=== PATIENT | male | born 1965 ===

== ENCOUNTER 2019-09-16 19:04 | Inpatient (IN) | payer MEDICAID ==
[~2019-09-16] VITALS: Ht 188 cm; Wt 112.8 kg
[2019-09-16] VITALS (129 sets, daily range): BP systolic 117–138; BP diastolic 65–97; PULSE 72–92; TEMP 97.3–97.8; O2SAT 90–99
--- NOTE | 2019-09-16 19:10 | NUR ---
PT ARRIVES PER AMBULATORY STATUS. IS ALERT AND ORIENTED X4. HAS SL TO LEFT HAND WITHOUT REDNESS OR SWELLING. S.O. AT BEDSIDE.
--- NOTE | 2019-09-16 19:25 | NUR ---
PT UNDERSTANDS PROCEDURE AND SIGNS CONSENT FOR SURGERY.
--- NOTE | 2019-09-16 19:35 | NUR ---
DR STODDARD NOTIFIED OF PTS ARRIVAL.
[2019-09-16] MEDS ORDERED: FLOMAX 0.40.4 MG/CAP PO (19:41)
[2019-09-16] MEDS ORDERED: ZOLOFT 50MG50 MG PO (19:41)
[2019-09-16] MEDS ORDERED: LIPITOR 40MG TA40 MG PO (19:42)
[2019-09-16] MEDS ORDERED: ZOFRAN 4MG T4 MG/TAB PO (19:42)
[2019-09-16] MEDS ORDERED: RT SPIRIVA18 MCG IH (19:43)
[2019-09-16] MEDS ORDERED: ASPIRIN E.C. 8181 MG PO (19:44)
--- NOTE | 2019-09-16 20:02 | NUR ---
Surgery staff here.
[2019-09-16 21:29] LABS: BASO # 0.1 (0.0-0.2); BASO % 0.6 % (0.0-2.0); EOS # 0.2 (0.0-0.7); GRAN # 4.9 (1.4-6.5); HEMATOCRIT 43.2 % (42.0-52.0); HEMOGLOBIN 14.5 g/dl (13.5-18.0); LYMPH # 2.3 (1.2-3.4); LYMPH % 28.4 % (20.0-51.0); MEAN CELL VOLUME 91 fl (80.0-100.0); MEAN CORPUSCULAR HEMOGLOBIN 31 pg (27.0-31.0); MEAN CORPUSCULAR HGB CONC 34 g/dl (33.0-37.0); MEAN PLATELET VOLUME 10.6 fl (7.4-10.4); MONO # 0.7 (0.1-0.6); MONO % 8.9 % (1.7-9.3); PLATELET COUNT 181 K/mm3 (130-400); RED BLOOD COUNT 4.74 M/mm3 (4.20-5.60); REDCELL DISTRIBUTION WIDTH-CV 12.4 % (11.5-14.5)
[2019-09-16 21:43] LABS: ALBUMIN 4.2 gm/dL (3.5-5.0); BILIRUBIN,TOTAL 0.7 mg/dL (0.0-1.0); CALCIUM 8.8 mg/dL (8.4-10.2); CREATININE, serum 1.42 (0.66-1.25); MAGNESIUM 2.1 mg/dL (1.6-2.3); PHOSPHOROUS 4.7 mg/dL (2.5-4.5); POTASSIUM 4.4 mmol/L (3.4-5.0)
--- NOTE | 2019-09-16 21:45 | NUR ---
Patient arrived to ICU accompanied by PACU team. Patient able to ambulate from medical bed to ICU bed with little difficulty. Patient has no complaints of pain at this time, IRA Qureshi notified of arrival.
[2019-09-17] VITALS (949 sets, daily range): BP systolic 106–118; BP diastolic 66–82; PULSE 73–88; TEMP 97.8–98.2; O2SAT 89–98
[2019-09-17 03:44] LABS: BASO # 0.1 (0.0-0.2); BASO % 0.7 % (0.0-2.0); EOS # 0.2 (0.0-0.7); EOS % 2.4 % (0-4.0); GRAN # 4.5 (1.4-6.5); GRAN % 55.9 % (42.2-75.2); HEMATOCRIT 41.1 % (42.0-52.0); LYMPH # 2.5 (1.2-3.4); LYMPH % 31.2 % (20.0-51.0); MEAN CELL VOLUME 91 fl (80.0-100.0); MEAN CORPUSCULAR HEMOGLOBIN 31 pg (27.0-31.0); MEAN CORPUSCULAR HGB CONC 34 g/dl (33.0-37.0); MEAN PLATELET VOLUME 10.7 fl (7.4-10.4); MONO # 0.8 (0.1-0.6); MONO % 9.7 % (1.7-9.3); PLATELET COUNT 164 K/mm3 (130-400); RED BLOOD COUNT 4.54 M/mm3 (4.20-5.60); REDCELL DISTRIBUTION WIDTH-CV 12.5 % (11.5-14.5)
[2019-09-17 03:54] LABS: ALANINE AMINOTRANSFERASE 19 U/L (21-72); ALBUMIN 3.8 gm/dL (3.5-5.0); ALKALINE PHOSPHATASE 55 U/L (50-136); ANION GAP 8 mmol/L (7-16); AST,SGOT 23 U/L (15-37); BILIRUBIN,TOTAL 0.8 mg/dL (0.0-1.0); BLOOD UREA NITROGEN 27 mg/dL (9-20); CALCIUM 8.5 mg/dL (8.4-10.2); CARBON DIOXIDE 26 mmol/L (22-30); CHLORIDE 104 mmol/L (98-107); CREATININE, serum 1.13 (0.66-1.25); GLUCOSE 109 mg/dL (74-106); MAGNESIUM 2.2 mg/dL (1.6-2.3); PHOSPHOROUS 4.9 mg/dL (2.5-4.5); POTASSIUM 4.4 mmol/L (3.4-5.0); SODIUM 138 mmol/L (137-145); TOTAL PROTEIN 6.6 gm/dL (6.4-8.2)
[2019-09-17 04:07] LABS: TROPONIN-I 6 HR POST INITIAL < 0.012 ng/mL (0.000-0.034)
--- NOTE | 2019-09-17 07:25 | NUR ---
Report from Amador PENALOZA. Pt denies pain or needs at bedside report.
--- NOTE | 2019-09-17 08:20 | NUR ---
PT SITTING UP IN BED, INDEPENDENT IN ROOM. ATE 100% OF BREAKFAST. NO C/O N/V OR PAIN AT THIS TIME. PT REPORTS PLAN TO MOVE TO FLOOR AND THEN DISCHARGE HOME LATER.
--- NOTE | 2019-09-17 11:23 | NUR ---
page sent to Dr Donaldson. re consult.
--- NOTE | 2019-09-17 11:31 | NUR ---
called consult to Dr. Cortes he will see patient.
--- NOTE | 2019-09-17 12:08 | NUR ---
First visit from the contracts analyst. No needs right now.
--- NOTE | 2019-09-17 12:15 | NUR ---
PT RESTING IN BED DENIES PAIN OR NEEDS AT THIS TIME. LINNENS CHANGED AND ICE WATER REFRESHED.
[2019-09-17] MEDS ORDERED: ELIQUIS 5MG PO (15:40)
[2019-09-17] MEDS ORDERED: TOPROL XL 25MG25 MG PO (15:40)
--- NOTE | 2019-09-17 16:13 | NUR ---
DISCHARGE INSTRUCTIONS REVIEWED WITH PT AND SO. QUESTIONS SOLICITED AND ANSWERED. PT ESCORTED AMBULATORY TO ED ENTRANCE.
--- NOTE | 2019-09-17 16:44 | NUR ---
Email Marketing Manager met with patient and patient's ex- Dary Lala" (ph#[phone]) to discuss discharge planning. Patient states he is ready to go home now. Patient lives in [place] with Amanda and sees Dr. Ashraf for primary care in [place]. Patient has medications delivered by [facility]. Patient reports independence with ADLS. Patient is presenting as self pay on the census. Patient reports he has Medicaid [employer] but realized he must have given his old [facility] card to Admissions by mistake. JOY took copy of patient's Medicaid cards. JOY placed one copy on patient's chart and provided another copy to admissions. JOY contacted Estela, Financial Counselor to provide update. Patient to discharge home today with Amanda providing transportation. No additional needs identified at this time.
== END 2019-09-17 16:15 | disposition home or self-care (01) | DRG 988 ==
LOC: SURG 19:04 → ICU 21:04
PROVIDERS: Internal Medicine; Nurse Practitioner Family; ADMIT Urology
PROC: 0T768DZ Dilation of Right Ureter with Intraluminal Device, Via Natural or Artificial Opening Endoscopic (ICD-10-PCS; principal; 2019-09-16 20:30)
DX: I49.3 Ventricular premature depolarization (principal); N20.1 Calculus of ureter; I97.791 Other intraoperative cardiac functional disturbances during other surgery; I69.351 Hemiplegia and hemiparesis following cerebral infarction affecting right dominant side; I50.22 Chronic systolic (congestive) heart failure; I48.0 Paroxysmal atrial fibrillation; Y83.8 Other surgical procedures as the cause of abnormal reaction of the patient, or of later complication, without mention of misadventure at the time of the procedure; Y92.234 Operating room of hospital as the place of occurrence of the external cause; E78.5 Hyperlipidemia, unspecified; F41.8 Other specified anxiety disorders; J44.9 Chronic obstructive pulmonary disease, unspecified; F17.210 Nicotine dependence, cigarettes, uncomplicated; Z88.5 Allergy status to narcotic agent; I69.393 Ataxia following cerebral infarction; N40.1 Benign prostatic hyperplasia with lower urinary tract symptoms
CPT/HCPCS: 99222; 99232-AI; C1769; C2617; J0690; J2704; J3010; Q9967